=== PATIENT | female | born 1945 | race Caucasian/White ===

== ENCOUNTER 2019-04-15 15:13 | Outpatient (REF) | payer OTHER, SELFPAY ==
[2019-04-15 19:59] LABS: ALT 25 U/L (14-59); AST 17 U/L (15-37); Alkaline Phosphatase 97 U/L (46-116); Anion Gap 6.1 mmol/L (3-11); BUN 15 mg/dL (7-18); Bilirubin, Total 0.3 mg/dL (0.2-1.0); CO2 29.9 mmol/L (21.0-32.0); Calcium 9.5 mg/dL (8.5-10.1); Calculated LDL 142 mg/dL (<100); Chloride 102 mmol/L (98-107); Cholesterol 222 mg/dL (<200); Glucose 99 mg/dL (74-106); HDL Cholesterol 57 mg/dL (40-60); Potassium 4.6 mmol/L (3.5-5.1); Sodium 138 mmol/L (136-145); TSH (W/Ref FT4) 0.51 uIU/mL (0.36-3.74); Total Protein 6.9 g/dL (6.4-8.2); Triglyceride 115 mg/dL (<150)
[2019-04-16 04:41] LABS: Vitamin D 25 Total 52.3 ng/ml (30-100)
== END 2019-04-15 15:33 ==
LOC: NCHCN 15:13
PROVIDERS: PCP Family Medicine; Visit Provider Nurse Practitioner
DX: E03.9 Hypothyroidism, unspecified (principal); R73.01 Impaired fasting glucose; M85.80 Other specified disorders of bone density and structure, unspecified site
CPT/HCPCS: 80053; 80061; 82306; 83036; 84443

== ENCOUNTER 2020-07-07 17:28 | Outpatient (REF) | payer OTHER, SELFPAY ==
[2020-07-07 17:53] LABS: Hemoglobin A1C 5.7 % (<5.7)
[2020-07-07 18:03] LABS: ALT 27 U/L (14-59); AST 17 U/L (15-37); Albumin 3.9 g/dL (3.4-5.0); Alkaline Phosphatase 111 U/L (46-116); Anion Gap 7.8 mmol/L (3-11); BUN 18 mg/dL (7-18); Bilirubin, Total 0.3 mg/dL (0.2-1.0); CO2 28.2 mmol/L (21.0-32.0); CREATININE 0.7 mg/dL (0.55-1.02); Calcium 9.2 mg/dL (8.5-10.1); Calculated LDL 132 mg/dL (<100); Chloride 102 mmol/L (98-107); Cholesterol 227 mg/dL (<200); Glucose 94 mg/dL (74-106); HDL Cholesterol 64 mg/dL (40-60); Potassium 4.8 mmol/L (3.5-5.1); Sodium 138 mmol/L (136-145); TSH (W/Ref FT4) 2.15 uIU/mL (0.36-3.74); Total Protein 6.9 g/dL (6.4-8.2); Triglyceride 159 mg/dL (<150)
== END 2020-07-07 17:29 | disposition home or self-care (01) ==
LOC: NCHCN 17:28
PROVIDERS: PCP Family Medicine; Visit Provider Nurse Practitioner
DX: R73.03 Prediabetes (principal); E03.9 Hypothyroidism, unspecified; E78.5 Hyperlipidemia, unspecified
CPT/HCPCS: 80053; 80061; 83036; 84443

== ENCOUNTER 2021-06-15 23:07 | Outpatient (REF) | payer OTHER, SELFPAY ==
[2021-06-15 18:55] LABS: BUN 22 mg/dL (7-18); CREATININE 0.8 mg/dL (0.55-1.02); Calcium 9.4 mg/dL (8.5-10.1); Chloride 101 mmol/L (98-107); Glucose 128 mg/dL (74-106); Potassium 4.4 mmol/L (3.5-5.1); Sodium 137 mmol/L (136-145); TSH 0.34 uIU/mL (0.36-3.74)
== END 2021-06-15 23:08 | disposition home or self-care (01) ==
LOC: NCHCN 23:07
PROVIDERS: PCP Nurse Practitioner; Visit Provider Nurse Practitioner Family
DX: E03.9 Hypothyroidism, unspecified (principal); R73.03 Prediabetes; F41.8 Other specified anxiety disorders; G47.00 Insomnia, unspecified
CPT/HCPCS: 80048; 83036; 84443

== ENCOUNTER → 2021-08-02 01:35 | Outpatient (CLI) | payer OTHER, SELFPAY ==
--- NOTE | 2021-08-02 | DI.MAMMO_ITS ---
Exam(s) MAMMO SCREENING EXAM: MAMMO SCREENING CLINICAL HISTORY: SCREENING FOR BREAST CANCER Z12.39. TECHNIQUE: Bilateral full field digital CC and MLO mammographic images were obtained with 3D tomosyn thesis and utilizing computer aided detection (CAD). COMPARISON: Prior mammograms were reviewed, the most recent being 2016. FINDINGS: Fibroglandular tissue pattern is mostly fatty. Small asymmetric density anteriorly in the left breast slightly lateral to the nipple is unchanged fr om at least 2013 and therefore benign. Another benign-appearing asymmetric density in the left breas t located approximately 10 cm in from the nipple on the CC view also appears stable. There is a small microcalcification group in the left breast located 5 cm in from the nipple, slightl y increased from prior studies although the most recent 1 is 2016. Remains benign appearance. No new findings in the opposite-right breast. There is no significant architectural distortion nor skin thickening-retraction. IMPRESSION: Stable benign findings. No radiographic evidence of malignancy. BI-RADS Category 2 - Benign Findings Breast Density - Category A - Almost entirely fatty Breast density Category C or D implies that the patient has dense breast tissue. Dense breast tissue can make it harder to find cancer on a mammogram. Dense breast tissue is also associated with an incr eased risk of breast cancer. This information about the result of the mammogram report was provided to the patient to raise their awareness. Use this report when you speak with the patient about their risks for breast cancer, which includes their family history. At that time, you may recommend additional screening tests (Ultrasoun d or MRI) as these tests may add significant information. A negative radiographic report should not delay biopsy if a dominant or clinically suspicious mass is present. Up to ten percent of cancers are not identified on mammography. A negative report may reinforce clinical impression. Adenosis and dense breasts may obscure an underlying neoplasm. False positive reports average 6 to 10%. Patient will receive a letter notifying them of these results.
== END ==
PROVIDERS: PCP Nurse Practitioner; Visit Provider Nurse Practitioner Family
DX: Z12.31 Encounter for screening mammogram for malignant neoplasm of breast (principal); N60.82 Other benign mammary dysplasias of left breast
CPT/HCPCS: 77063; 77067

== ENCOUNTER 2021-09-22 15:52 | Outpatient (REF) | payer OTHER, SELFPAY ==
[2021-09-22 18:53] LABS: TSH (W/Ref FT4) 0.44 uIU/mL (0.36-3.74)
== END 2021-09-22 15:53 | disposition home or self-care (01) ==
LOC: NCHCN 15:52
PROVIDERS: PCP Nurse Practitioner; Visit Provider Nurse Practitioner Family
DX: E03.9 Hypothyroidism, unspecified (principal)
CPT/HCPCS: 84443